=== PATIENT | female | born 1950 | race Caucasian/White ===

== ENCOUNTER 2024-10-22 10:25 | Outpatient (AMB) | payer OTHER, SELFPAY ==
--- NOTE | 2024-10-22 10:28 | MHC.OFFVIS ---
Vital Signs 10/22/24 10:30 Height 5 ft 3 in Weight 190 lb BMI 33.7 BP 120/72 Blood Pressure Location Rt brachial Position Sitting Intake Visit Reasons: ENP-Syncope Intake Note: Patient referred for syncope Swimming Pool Plasterer Helper Required: Yes Swimming Pool Plasterer Helper Services: Swimming Pool Plasterer Helper Offered & Declined Swimming Pool Plasterer Helper Name: Son Markus will translate Allergies losartan Allergy (Severe, Verified 10/22/24 10:31) Rash cholecalciferol (vitamin D3) (From Vitamin D3) Allergy (Mild, Verified 10/22/24 10:31) itching HPI Comments Details: 74y/o Guyanese speaking female is referred here for evaluation of syncope. she is accompanied by her son who helps with history.Her first episode was 2 years ago , she was shopping at [employer] - but viramontes snot remember if she felt lightheaded.she was taken to the hospital - no diagnosis. The second episode was 1 year ago - at home sitting in a chair - had slurred speech and passed out . few seconds to minutes. BP was around 160. she woke up and was fine. she had multiple evals. Her BP medications were adjusted and since then no episodes of passing as per her son. her son was upset that her symptoms resolved and she still had to come for neurology appointment . [facility] Medical History (Updated 10/22/24 @ 11:10 by Francesca Barragan MD) Snoring Syncope Tenosynovitis Urinary incontinence Trigger finger Vertigo Spondylosis without myelopathy or radiculopathy PAD (peripheral artery disease) Osteoarthritis Onychomycosis Microangiopathy, diabetic Major depressive disorder Hypothyroidism Hypertensive cardiovascular-renal disease HTN (hypertension) Hyperlipidemia HX: breast cancer GERD (gastroesophageal reflux disease) Generalized anxiety disorder Edema Diverticulosis Diastolic CHF Diabetic polyneuropathies Type 2 diabetes mellitus with hyperglycemia Constipation CKD (chronic kidney disease) Chronic bilateral low back pain Carpal tunnel syndrome Carotid artery stenosis Bilateral carotid artery occlusion Atypical chest pain Aortic dilatation Surgical History H/O breast surgery H/O breast biopsy Hx of cholecystectomy Social History Alcohol intake: never Patient Tobacco Use Status: Never used Tobacco Physical Exam Vital Signs: Last Vital Signs BP 120/72 10/22/24 10:30 BMI result Body Mass Index 33.7 Const General: cooperative, healthy appearing, comfortable and no acute distress Nutritional Appearance: overweight Orientation/consciousness: patient oriented x3 Eyes Pupils: Equal, round and reactive pupils present Neuro Other: uses a cane - antalgic, small steps slow General: patient oriented x3, tone normal, moves all extremities and no focal motor deficits Cranial nerves: Yes Facial sensation intact/muscles of mastication intact, Yes Equal, round and reactive pupils present, Yes Bilaterally intact EOM present, Yes Nystagmus not present, Yes Normal facial strength present, Yes Midline tongue present, Yes Symmetric palate elevation present and Yes Ability to bilaterally elevate shoulders present Cognition (Neuro): normal cognition Gait exam (Neuro): Antalgic gait present Deep tendon reflexes (DTR's): Right triceps reflex intensity grade: 1+, Left triceps reflex intensity grade: 1+, Rt Biceps (C5, C6): 1+, Left biceps reflex intensity grade: 1+, Right brachioradialis reflex intensity grade: 1+, Left brachioradialis reflex intensity grade: 1+, Right patellar reflex intensity grade: 1+ and Left patellar reflex intensity grade: 1+ Coordination: [id number] test normal Assessment & Plan Assessment & Plan (1) Syncope: Comment: resolved with BP management Code(s): R55 - Syncope and collapse Category: Medical Qualifiers: Syncope type: unspecified Qualified Code(s): R55 - Syncope and collapse (2) Snoring: Code(s): R06.83 - Snoring Category: Medical Plan Patient declines any further assessment She is doing good declines sleep study Suggetsed to avoid supine sleep.will clal back if the sleep worsens for sleep study Coding Level of Care Code New Pt Level 4 (48911) Diagnoses Syncope, unspecified syncope type R55 Syncope type: unspecified Snoring R06.83
[2024-10-22 10:30] VITALS: BP 120/72; BMI 33.7
--- OUTSIDE RECORDS SUMMARY | 2024-10-22 11:50 | XMS_ITS | Clinical Summary ---
Author Organization [facility] Address [address] [place] [address] Care Team Providers Care Staffing Recruiter Name Role Phone Carson Domingo Unavailable [phone] Allergies Active Allergy Reactions Criticality Noted Date Comments Cholecalciferol 07/09/2022 Medications levothyroxine (Synthroid) 100 MCG/5ML solution Act jocelyn LORazepam (Ativan) 0.06 mg/mL injection Acti ve amLODIPine (Norvasc) 2.5 MG tablet daily. Active ammonium lactate (Amlactin) 12 % cream 2 times daily. Active atorvastatin (Lipitor) 20 MG tablet daily. 06/26/2017 Active metFORMIN (Glucophage) 500 MG tablet 2 times daily. 06/26/2017 Active oxyCODONE-acetam inophen (Percocet) 5-325 MG tablet TAKE 1/2 TABLET BY MOUTH EVERY 6 HOURS NEEDED FOR SEVERE MOUTH PAIN 03/08/2022 Active Social History Tobacco Use Types Packs/Day Years Used Date Smoking Tobacco: Never Smokeless Tobacco: Never Tobacco Cessation:Counseling Given: Not Answered Alcohol Use Standard Drinks/Week Comments Never 0 (1 standard drink = 0.6 oz pur e alcohol) Comments Unknown Sex and Gender Information Value Date Recorded Sex Assigned at Female 06/08/2022 8:28 AM EST Legal Sex Female 8:40 PM EST Gender Identity Choose not to disclose 8:40 PM EST Sexual Orientation Choose not to disclose 2022 3:40 PM EDT Last Filed Vital Signs Vital Sign Reading Time Taken Comments Blood Pressure 127/66 09/12/2022 10:16 AM EDT Pulse 71 09/12/2022 10:16 AM EDT Temperature 36.2 C (97.2 F) 09/12/2022 10:16 AM EDT Respiratory Rate - - Oxygen Saturation - - Inhaled Oxygen Concentration - - Weight - - Height - - Body Mass Index - - Plan of Treatment Health Maintenance Due Date Last Done Comments CT Colonography 1951 Colonoscopy 1951 Colorectal Cancer Screening 1951 Dental Prophylaxis 1951 Depression Screening 1951 FIT DNA/Cologuard 1951 FIT 1951 FOBT 1951 SDOH Screening 1951 Sigmoidoscopy 1951 Alcohol/Substance Use Screening 1963 Hepatitis C Screening 1969 DTaP/Tdap/Td Vaccines (1 - Tdap) 1970 Mammogram 1991 Pneumococcal Vaccine: 50+ Years (1 of 1 - PCV) 2001 Zoster Vaccines (1 of 2) 2001 Dental Oral Exam 12/21/2022 06/22/2022 Tobacco Screening 06/12/2023 06/12/2022 Dental X-Ray: Bitewings 06/23/2023 06/22/2022 COVID-19 Vaccine ( - season) 2024 Influenza Vaccine (Season Ended) 2025 02/21/2022, 02/28/2021, 03/08/2020, Additional history exists Dental X-Ray: Full Mouth 06/23/2025 06/22/2022, 12/04 RSV Patients and Patients Aged 60 years or older (1 - 1-dose 75+ series) 2026 HIB Vaccines Aged Out No longer eligi ble based on patient's age to complete this topic HPV Vaccines Aged Out No longer eligi ble based on patient's age to complete this topic Hepatitis A Vaccines Aged Out No long er eligible based on patient's age to complete this topic Hepatitis B Vaccines Aged Out No long er eligible based on patient's age to complete this topic IPV Vaccines Aged Out No longer eligi ble based on patient's age to complete this topic Meningococcal B Vaccine Aged Out No l onger eligible based on patient's age to complete this topic Meningococcal Vaccine Aged Out No solomon silvia eligible based on patient's age to complete this topic RSV under 20 months Aged Out No longe r eligible based on patient's age to complete this topic Rotavirus Vaccines Aged Out No longer eligible based on patient's age to complete this topic Procedures Procedure Name Priority Date/Time Associated Diagnosis Comments INTRAORAL - COMPLETE SERIES OF RADIOGRAPHIC IMAGES Routine 06/22/2022 4:15 PM EST COMPREHENSIVE ORAL EVALUATION - NEW OR ESTABLISHED PATIENT Routine 06/22/2022 4:15 PM EST from Last 3 Months or Most Recently Relevant to Health Maintenance Insurance [facility] [facility] Care Teams Staffing Recruiter Relationship Specialty Start Date End Date Carson Domingo LLD [address] [place] [id number] Dentist 05/10/23
== END 2024-10-22 11:06 | disposition home or self-care (01) ==
LOC: HO.HSMS 10:26
PROVIDERS: PCP Registered Nurse; Visit Provider Psychiatry & Neurology Neurology
DX: R55 Syncope and collapse (principal); R06.83 Snoring
CPT/HCPCS: 99204

== ENCOUNTER → 2024-10-22 10:25 | Outpatient (BNVA) | payer OTHER, SELFPAY | PROVIDERS: PCP Registered Nurse; Visit Provider Psychiatry & Neurology Neurology ==